=== PATIENT | male | born 1995 ===

== ENCOUNTER 2017-02-28 21:12 | Emergency (ER) | payer OTHER ==
[2017-02-28 21:18] VITALS: BP 173/84
[2017-02-28 22:13] LABS: Hematocrit 45 % (42-52); Hemoglobin 15.4 g/dl (14.0-18.0); Mean Corpuscular HGB Conc 35 g/dl (31-36); Mean Corpuscular Hemoglobin 32 pg (27-31); Mean Corpuscular Volume 92 fL (80-94); Mean Platelet Volume 7 um3 (7.4-10.4); Red Blood Count 4.85 10^6/ul (4.0-5.4); Red Cell Distribution Width 13 % (10.5-15); White Blood Count 14.1 10^3/ul (3.5-10.8)
--- NOTE | 2017-02-28 22:13 | ED ---
Psychiatric Complaint - HPI Summary HPI Summary: 22M presents with increase anxiety over the past month. He states everything is overwhelming him and he doesn't know what to do. He has been talking with his family as he is close with them. He denies any SI/HI. He did use to cut but has not done that in months. He denies any drug or ETOH use. He has family history of depression. He has not seen anyone about this yet. He denies any recent illness or any other compliant. - History Of Current Complaint Chief Complaint: EDMentalHealth Time Seen by Provider: 02/28/17 21:20 - Allergies/Home Medications Allergies/Adverse Reactions: Allergies Allergy/AdvReac Type Severity Reaction Status Date / Time No Known Allergies Allergy Verified 02/28/17 21:18 PMH/Surg Hx/FS Hx/Imm Hx Endocrine/Hematology History: Denies: Hx Anticoagulant Therapy Cardiovascular History: Denies: Hx Hypertension Infectious Disease History: No Infectious Disease History: Denies: Traveled Outside the [place] in Last 30 Days - Family History Known Family History: Positive: Other - depression - Social History Alcohol Use: None Substance Use Type: Reports: None Smoking Status (MU): Never Smoked Tobacco Review of Systems Negative: Fever Negative: Chest Pain Negative: Shortness Of Breath Positive: Anxious All Other Systems Reviewed And Are Negative: Yes Physical Exam Triage Information Reviewed: Yes Vital Signs On Initial Exam: Initial Vitals Temp Pulse Resp BP Pulse Ox 98.7 F 125 16 173/84 99 02/28/17 21:16 02/28/17 21:16 02/28/17 21:16 02/28/17 21:16 02/28/17 21:16 Vital Signs Reviewed: Yes Appearance: Positive: Well-Appearing Skin: Positive: Warm, Dry Head/Face: Positive: Normal Head/Face Inspection Eyes: Positive: Normal, Conjunctiva Clear Respiratory/Lung Sounds: Positive: Clear to Auscultation, Breath Sounds Present Cardiovascular: Positive: Normal, RRR Abdomen Description: Positive: Nontender, Soft Bowel Sounds: Positive: Present Musculoskeletal: Positive: Normal Neurological: Positive: Normal Psychiatric: Positive: Anxious - [place] Coma Scale Coma Scale Total: 15 Diagnostics - Vital Signs Vital Signs Temp Pulse Resp BP Pulse Ox 02/28/17 21:16 98.7 F 125 16 173/84 99 - Laboratory Result Diagrams: 02/28/17 22:00 02/28/17 22:00 Lab Statement: Any lab studies that have been ordered have been reviewed, and results considered in the medical decision making process. Course/Dx - Course Course Of Treatment: 22M presents with increase anxiety over the past month. He states everything is overwhelming him and he doesn't know what to do. He has been talking with his family as he is close with them. He denies any SI/ HI. He did use to cut but has not done that in months. He denies any drug or ETOH use. He has family history of depression. He has not seen anyone about this yet. on exam patient appear anxious otherwise normal PE. patient is medically clear for [facility]. signed out to dr wu pending [facility]. - Differential Dx/Clinical Impression Differential Diagnosis/HQI/PQRI: Positive: Anxiety, Depression, Suicidal Ideation Provider Diagnosis: Anxiety Discharge - Discharge Plan Condition: Stable Disposition: OTHER Discharge Disposition Comment: signed out to dr wu pending [facility] Referrals: Non Staff,Doctor [Primary Care Provider] -
[2017-02-28 22:15] LABS: Urine Bilirubin Negative (Negative); Urine Glucose Negative (Negative); Urine Nitrite Negative (Negative)
[2017-02-28 22:27] LABS: ALT 27 U/L (7-52); AST 15 U/L (13-39); Albumin 5.1 g/dL (3.2-5.2); Alkaline Phosphatase 55 U/L (34-104); Anion Gap 12 mmol/L (2-11); BUN/Creatinine Ratio 17.7 (8-20); Blood Urea Nitrogen 17 mg/dL (6-24); CO2 Carbon Dioxide 21 mmol/L (22-32); Calcium 9.6 mg/dL (8.6-10.3); Chloride 103 mmol/L (101-111); EGFR African American 128.4 (>60); EGFR Non-African American 99.9 (>60); Globulin 2.6 g/dL (2-4); Glucose 113 mg/dL (70-100); Potassium 3.4 mmol/L (3.5-5.0); Sodium 136 mmol/L (133-145); Total Protein 7.7 g/dL (6.4-8.9)
[2017-02-28 22:28] LABS: Benzodiazepine Urine Screen None Detected (None Detect)
[2017-02-28 22:57] LABS: Acetaminophen < 15 mcg/mL; Alcohol < 10 mg/dL (<10); Salicylate < 2.50 mg/dL (<30)
[2017-02-28 23:12] LABS: TSH (Thyroid Stimulating Horm) 1.88 mcIU/mL (0.34-5.60)
--- NOTE | 2017-03-01 03:18 | ED ---
Byron Shrestha Benjamin, scribed for Airam Revlees MD on 03/01/17 at 0317 . Progress - Progress Note Progress Note: Signout pt from [facility] [employer] [employer]. Pending [facility]. - Consult/PCP Time Called: 02:12 Course/Dx - Course Course Of Treatment: Pt will be discharged home with dx of anxiety. Pt will follow up with [facility]. - Diagnoses Provider Diagnoses: Anxiety The documentation as recorded by the Byron boyce Benjamin accurately reflects the service I personally performed and the decisions made by Anushka kelly Abdul, MD.
== END 2017-03-01 03:54 ==
LOC: ED 21:12
DX: F41.9 Anxiety disorder, unspecified (principal)
CPT/HCPCS: 36415; 80053; 80307; 80320; 80329; 81003; 84443; 85025; 99283; G0480